=== PATIENT | female | born 1960 | race Native Hawaiian/Other Pacific Islander ===

== ENCOUNTER 2019-05-09 08:55 | Day surgery (SDC) | payer OTHER | END 2019-05-09 10:35 | disposition home or self-care (01) | LOC: OR 08:55 | PROC: 3E0R33Z Introduction of Anti-inflammatory into Spinal Canal, Percutaneous Approach (ICD-10-PCS; principal; 2019-05-09) | PROC: B01BYZZ Fluoroscopy of Spinal Cord using Other Contrast (ICD-10-PCS; 2019-05-09) | DX: M51.17 Intervertebral disc disorders with radiculopathy, lumbosacral region (principal) | CPT/HCPCS: J1020 ==

== ENCOUNTER 2019-11-28 09:09 | Day surgery (SDC) | payer OTHER | END 2019-11-28 12:17 | disposition home or self-care (01) | LOC: OR 09:09 | PROC: 3E0R33Z Introduction of Anti-inflammatory into Spinal Canal, Percutaneous Approach (ICD-10-PCS; principal; 2019-11-28) | PROC: B01BYZZ Fluoroscopy of Spinal Cord using Other Contrast (ICD-10-PCS; 2019-11-28) | DX: M50.123 Cervical disc disorder at C6-C7 level with radiculopathy (principal) | CPT/HCPCS: J1020 ==

== ENCOUNTER 2020-04-02 08:31 | Day surgery (SDC) | payer OTHER ==
[~2020-04-02] VITALS: Ht 30.5 cm; Wt 0.5 kg
== END 2020-04-02 09:53 | disposition home or self-care (01) ==
LOC: OR 08:31
PROC: 3E0R33Z Introduction of Anti-inflammatory into Spinal Canal, Percutaneous Approach (ICD-10-PCS; principal; 2020-04-02)
PROC: B01BYZZ Fluoroscopy of Spinal Cord using Other Contrast (ICD-10-PCS; 2020-04-02)
DX: M50.123 Cervical disc disorder at C6-C7 level with radiculopathy (principal)
CPT/HCPCS: J1020